=== PATIENT | female | born 1990 | race American Indian/Alaskan Native ===

== ENCOUNTER 2017-03-23 14:40 | Emergency (ER) | payer SELFPAY ==
[2017-03-23 14:40] VITALS: BMI 26.6
[2017-03-23 14:45] VITALS: BP 135/85; PULSE 89; RESP 18; TEMP 98.1; O2SAT 98
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
== END 2017-03-23 15:08 | disposition home or self-care (01) ==
LOC: MERGE 14:40 → C.ER 14:40
DX: S00.81XA Abrasion of other part of head, initial encounter (principal); Y09 Assault by unspecified means; F10.10 Alcohol abuse, uncomplicated; Y90.9 Presence of alcohol in blood, level not specified; Z76.5 Malingerer [conscious simulation]

== ENCOUNTER 2017-03-23 15:19 | Emergency (ER) | payer SELFPAY ==
[2017-03-23 15:19] VITALS: BMI 26.6
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
[2017-03-23 15:45] VITALS: BP 141/81; PULSE 96; RESP 18; TEMP 98.3; O2SAT 100
== END 2017-03-23 15:50 | disposition left against medical advice (07) ==
LOC: MERGE 15:19 → C.ER 15:19
DX: S00.81XD Abrasion of other part of head, subsequent encounter (principal); Y04.0XXD Assault by unarmed brawl or fight, subsequent encounter

== ENCOUNTER 2017-03-23 16:21 | Emergency (ER) | payer SELFPAY ==
[2017-03-23 16:22] VITALS: BMI 26.6
[2017-03-23 16:31] VITALS: O2SAT 98
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
[2017-03-23 17:42] VITALS: BP 140/70; PULSE 90; RESP 20; TEMP 98
== END 2017-03-23 17:42 | disposition home or self-care (01) ==
LOC: C.ER 16:21 → MERGE 16:21 → C.ER 17:42
DX: S00.511D Abrasion of lip, subsequent encounter (principal); S00.03XD Contusion of scalp, subsequent encounter; Y04.0XXD Assault by unarmed brawl or fight, subsequent encounter

== ENCOUNTER 2017-04-05 09:24 | Emergency (ER) | payer MEDICAID, OTHER ==
[2017-04-05 09:24] VITALS: BMI 26.6
[2017-04-05 09:37] VITALS: RESP 18
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
[2017-04-05] MEDS ORDERED: Bacitracin 500 Units/gm Oint Foilpak UD ONE (11:01)
[2017-04-05] MEDS ORDERED: Lidocaine 1% Inj (20ml) ONE (11:02)
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
[2017-04-05 13:56] VITALS: TEMP 98.2
[2017-04-05] MEDS ORDERED: cefTRIAXone (Rocephin) 250 mg Inj IM STA (16:40)
[2017-04-05] MEDS ORDERED: Emtricitabine-Tenofovir 200 mg-300 mg Tab PO STA ×2 (16:40)
[2017-04-05 17:30] LABS: RBC URINE 12 /hpf (0-3); TRANSITIONAL EPITHIAL < 1 /hpf (0-3); URINE BACTERIA RARE (<OCC); URINE BILIRUBIN NEGATIVE (NEGATIVE); URINE BLOOD 2+ (NEGATIVE); URINE COLOR Yellow (YELLOW); URINE GLUCOSE (UA) NORMAL (Normal); URINE KETONE NEGATIVE (NEGATIVE); URINE PROTEIN NEGATIVE (NEGATIVE); URINE UROBILINOGEN NORMAL mg/dL (0.2-1.0); WBC URINE 4 /hpf (0-5)
[2017-04-05 17:31] LABS: URINE LEUKOCYTE ESTERASE TRACE Leu/uL (Negative)
[2017-04-05 18:28] VITALS: BP 126/77; PULSE 94; O2SAT 100
== END 2017-04-05 18:27 | disposition home or self-care (01) ==
LOC: C.ER 09:24
DX: T76.21XA Adult sexual abuse, suspected, initial encounter (principal); F17.210 Nicotine dependence, cigarettes, uncomplicated; Z59.0 Homelessness
CPT/HCPCS: 11730; 81001; 84703; 86703; 96372; 99285; J0696

== ENCOUNTER 2017-05-14 08:37 | Emergency (ER) | payer MEDICAID, OTHER ==
[2017-05-14 09:07] VITALS: BMI 32.1
[2017-05-14 09:09] VITALS: TEMP 98.9
[2017-05-14] MEDS ORDERED: Lidocaine 1%/Epinephrine 1:100000 30 ml vial IJ ONE ×2 (11:15→11:30)
[2017-05-14] MEDS ORDERED: Lidocaine 1% Inj (20ml) ONE (11:24)
[2017-05-14] MEDS ORDERED: Bacitracin 500 Units/gm Oint Foilpak UD ONE (12:03)
--- NOTE | 2017-05-14 12:11 | C.PDOC ---
History Of Present Illness Pt c/o right great toe ingrown toenail. Time Seen by Provider: 05/14/17 09:30 Chief Complaint (Nursing): Lower Extremity Problem/Injury History Per: Patient Onset/Duration Of Symptoms: Days (about 2 weeks) Current Symptoms Are (Timing): Worse Severity: Moderate Additional History Per: Prior Records Past Medical History Reviewed: Historical Data, Nursing Documentation, Vital Signs Vital Signs: Last Vital Signs Temp 98.9 F 05/14/17 09:07 Pulse 85 05/14/17 09:07 Resp 20 05/14/17 09:07 BP 109/72 05/14/17 09:07 Pulse Ox 99 05/14/17 09:07 - Medical History PMH: Anxiety - [facility] Procedures INJECT/INFUSE NEC (04/07/13) MEDICATION MANAGEMENT (10/28/15) Family History: States: Unknown Family Hx - Social History Hx Tobacco Use: No Hx Alcohol Use: Yes Hx Substance Use: No - Immunization History Hx Tetanus Toxoid Vaccination: Yes Hx Influenza Vaccination: Yes Hx Pneumococcal Vaccination: No Review Of Systems Except As Marked, All Systems Reviewed And Found Negative. Constitutional: Negative for: Fever, Weakness Cardiovascular: Negative for: Chest Pain Respiratory: Negative for: Shortness of Breath Gastrointestinal: Negative for: Vomiting, Abdominal Pain Musculoskeletal: Positive for: Foot Pain (right great toe). Negative for: Neck Pain, Leg Pain Neurological: Negative for: Weakness, Numbness Physical Exam - Physical Exam Appears: Non-toxic, No Acute Distress Skin: Normal Color, Warm, Dry Head: Atraumatic, Normacephalic Eye(s): bilateral: Normal Inspection, PERRL, EOMI Neck: Normal ROM, Supple Extremity: Normal ROM, No Pedal Edema, No Calf Tenderness, Other (Right great toe ingrown toenail.) Pulses: Right Dorsalis Pedis: Normal Neurological/Psych: Oriented x3, Normal Motor, Normal Sensation ED Course And Treatment O2 Sat by Pulse Oximetry: 99 Pulse Ox Interpretation: Normal Progress Note: Ingrown toenail was treated by Podiatry in the ED. Reassessment Condition: Improved Disposition Counseled Patient/Family Regarding: Diagnosis, Need For Followup, Rx Given - Disposition Referrals: [facility] at [facility] [Outside] Disposition: HOME/ ROUTINE Disposition Time: 12:12 Condition: IMPROVED Additional Instructions: Follow up in Podiatry clinic. Return to the ER if you develop fever, pus drainage, worsening of symptoms or if you have any other concerns. Prescriptions: Cephalexin [Keflex] 500 mg PO QID #40 capsule Instructions: Ingrown Nail (ED) - Clinical Impression Clinical Impression: Ingrown right greater toenail
[2017-05-14 12:18] VITALS: BP 127/80; PULSE 72; RESP 16; O2SAT 100
--- NOTE | 2017-05-14 12:40 | CP.PCM.CON ---
History of Present Illness - History of Present Illness History of Present Illness: Podiatry consult note for Dr. Corado 26 year old female with no significant PMH was seen in the ED for right ingrown toenail pain. She states that a month ago she had an infected left great toe nail excised in [facility] ER by podiatry service and completed abx regimen, she was seen about 2 weeks ago fro new similar symptoms to her right great toe and was given antibiotics which she lost and never completed the regimen. Pt reports she is un-homed and currently in a penitentiary and states that she showers in a community shower. She admits to yellow non-milky discharge coming from the right great toe, both borders. Pt reports pain is a "7/10" to the affected area denies, and states that she has been having trouble walking due to the pain. She is utilizing previously dispensed post-op shoe to walk. Denies any recent n /v/f/c/sob/cp. Past Patient History - Infectious Disease Hx of Infectious Diseases: None - Tetanus Immunizations Tetanus Immunization: Up to Date, Unknown - Past Medical History & Family History Past Medical History?: No - Past Social History Smoking Status: Light Smoker < 10 Cigarettes Daily - CARDIAC Hx Hypertension: No - PULMONARY Hx Tuberculosis: No - NEUROLOGICAL Hx Seizures: No - HEENT Hx HEENT Problems: No - RENAL Hx Chronic Kidney Disease: No - HEMATOLOGICAL/ONCOLOGICAL Hx Human Immunodeficiency Virus (HIV): No - INTEGUMENTARY Hx Dermatological Problems: No - MUSCULOSKELETAL/RHEUMATOLOGICAL Hx Musculoskeletal Disorders: No - GASTROINTESTINAL Hx Gastrointestinal Disorders: No - GENITOURINARY/GYNECOLOGICAL Hx Sexually Transmitted Disorders: No - PSYCHIATRIC Hx Anxiety: Yes Hx Substance Use: No - SURGICAL HISTORY Hx Surgeries: No Hx Orthopedic Surgery: Yes (lt foot) Other/Comment: RT eye surgery - ANESTHESIA Hx Anesthesia: Yes Hx Anesthesia Reactions: No Hx Malignant Hyperthermia: No Meds Home Medications: Home Medication List Medication Instructions Recorded Confirmed Type Cephalexin [Keflex] 500 mg PO QID #40 capsule 05/14/17 Rx Allergies/Adverse Reactions: Allergies Allergy/AdvReac Type Severity Reaction Status Date / Time pollen extracts Allergy Mild Verified 05/14/17 09:06 Physical Exam - Constitutional Appears: Well, Non-toxic, No Acute Distress - Extremities Exam Additional comments: Lower extremity focused exam: Vasc: DP and PT pulses palpable 2/4. Skin temperature warm to warm from proximal to distal. CFT < 3 seconds to all digits. Neuro: Gross sensation intact. Ortho: Tenderness on palpation to medial and lateral nail borders and distal tuft of right hallux. No tenderness upon palpation to left hallux nail-border. Derm: Lateral border of the right hallux was noted to be macerated, hypertrophied, with dried sanginous exudate. No active drainage noted, no purulence, mild malodor noted. Erythema and mild hyperpigmentation noted to the medial aspect of the nail border extending plantarly. Lef tlateral nail plate noted to be absent, absent acute signs of infection, no active drainage noted, no erythema, mild mal-odor noted. - Neurological Exam Neurological exam: Alert, Oriented x3 - Psychiatric Exam Psychiatric exam: Normal Affect, Normal Mood Results - Vital Signs Recent Vital Signs: Last Vital Signs Temp 98.9 F 05/14/17 09:07 Pulse 72 05/14/17 12:17 Resp 16 05/14/17 12:17 BP 127/80 05/14/17 12:17 Pulse Ox 100 05/14/17 12:17 Assessment & Plan - Assessment and Plan (Free Text) Assessment: 26 year old female with right hallux paronychia and ingrown bilateral nail borders Plan: Patient examined and evaluated. Chart and vitals reviewed. Discussed with attending Dr. Corado, who endoresed the following plan. Right hallux nail anesthetized with 10 mL's of 1% lidocaine plain in a local block fashion. The hallux was cleansed with betadine and nail bed was explored. The lateral and medial hallux nail borders was noted to be ingrown, utilizing a freer elevator, the respective borders was freed from the nail bed, and using sharp dissection was cut back to the nail root and removed. Explored for nail spicules which were absent. The site was irrigated with copious amounts of betadine-sterile saline mixture. The site was dressed with bacitracin, 4x4, cling, and MELO. Patient to keep dressing c/d/i for 48-72 hours, after which patient to soak foot in epsom salt for 10-15 mintues daily, dry well, and apply bacitrain and bandaid educated patient in importance of keeping site clean. Pt to return to ED is acute signs of infection present. Prescribed Keflex 500mg BID for 7 days. Patient to follow up in podiatry clinic in 9 days. - Date & Time Date: 05/14/17 Time: 11:30
== END 2017-05-14 12:18 | disposition home or self-care (01) ==
LOC: C.ER 08:37
DX: L60.0 Ingrowing nail (principal); F17.210 Nicotine dependence, cigarettes, uncomplicated

== ENCOUNTER 2017-07-01 19:01 | Emergency (ER) | payer MEDICAID, OTHER ==
[2017-07-01 19:04] VITALS: BMI 30.7
--- NOTE | 2017-07-01 19:50 | C.PDOC ---
History Of Present Illness 26 year old female, , LMP last month, presents to the ER with a complaint of abdominal pain and diarrhea. Patient was evaluated at another institution 3 days ago, told she was and treated for STD. Patient also reports she feels depressed and is still using crack. Denies other complaints at this time. Time Seen by Provider: 07/01/17 19:42 Chief Complaint (Nursing): Abdominal Pain History Per: Patient History/Exam Limitations: no limitations Onset/Duration Of Symptoms: Days Radiation Of Pain To:: None Quality Of Discomfort: Unable To Describe Associated Symptoms: Diarrhea. denies: Fever, Chills Exacerbating Factors: None Alleviating Factors: None Recent travel outside of the [place]: No Abnormal Vaginal Bleeding: No Past Medical History Reviewed: Historical Data, Nursing Documentation, Vital Signs Vital Signs: Last Vital Signs Temp 97.9 F 07/01/17 22:42 Pulse 82 07/01/17 22:42 Resp 22 07/01/17 22:42 BP 137/84 07/01/17 22:42 Pulse Ox 100 07/01/17 22:53 - Medical History PMH: Anxiety - [facility] Procedures INJECT/INFUSE NEC (04/07/13) MEDICATION MANAGEMENT (10/28/15) Family History: States: Unknown Family Hx - Social History Hx Tobacco Use: No Hx Alcohol Use: Yes Hx Substance Use: Yes (CRACK) - Immunization History Hx Tetanus Toxoid Vaccination: Yes Hx Influenza Vaccination: Yes Hx Pneumococcal Vaccination: No Review Of Systems Constitutional: Negative for: Fever, Chills Cardiovascular: Negative for: Chest Pain, Palpitations Respiratory: Negative for: Shortness of Breath Gastrointestinal: Positive for: Abdominal Pain, Diarrhea Psych: Positive for: Depression Physical Exam - Physical Exam Appears: Non-toxic, No Acute Distress Skin: Normal Color, Warm, Dry Head: Atraumatic, Normacephalic Eye(s): bilateral: Normal Inspection Oral Mucosa: Moist Chest: Symmetrical, No Tenderness Cardiovascular: Rhythm Regular Respiratory: Normal Breath Sounds, No Rales, No Rhonchi, No Wheezing Gastrointestinal/Abdominal: Soft, No Tenderness Back: No CVA Tenderness Neurological/Psych: Oriented x3, Normal Speech ED Course And Treatment - Laboratory Results Result Diagrams: 07/01/17 20:11 07/01/17 20:11 O2 Sat by Pulse Oximetry: 100 (Room air) Pulse Ox Interpretation: Normal Medical Decision Making Medical Decision Making: ro threatned miscarriage- us 2 days ago. beta 100. repeat labs penidng also c/o of drug abuse and requests detox and admission for depression Plan: * Blood work * Urinalysis * Transvaginal US * IV fluids * Crisis eval seen by dulce vang. does not meet admission criteria. beta increased to 500. us shows susepcted early iup. pt refuses pelvic s/p std tx at [facility] 2 days ago. taking po Disposition - Disposition Referrals: [facility] [Outside] [facility] [Outside] Disposition: HOME/ ROUTINE Disposition Time: 22:40 Condition: STABLE Additional Instructions: please follo wup with your doctor. return to er with worsening symptoms or concerns. you may need addiitonal blood work and ultrasound in the next 48 hours. follow up with obgyn Prescriptions: Nitrofurantoin Macrocrystals [Macrobid] 100 mg PO BID #14 cap Instructions: Depression, Threatened Miscarriage, Drug Abuse and Drug Addiction (DC) Forms: [employer] (Italian) - Clinical Impression Clinical Impression: Threatened , Substance abuse - Scribe Statement The provider has reviewed the documentation as recorded by the Scribe Andry Lance All medical record entries made by the Scribe were at my direction and personally dictated by me. I have reviewed the chart and agree that the record accurately reflects my personal performance of the history, physical exam, medical decision making, and the department course for this patient. I have also personally directed, reviewed, and agree with the discharge instructions and disposition.
[2017-07-01] MEDS ORDERED: Sodium Chloride 0.9% 1,000 ML IV ONE (19:53)
[2017-07-01 20:25] LABS: BASO # 0.1 K/uL (0.0-0.2); BASO % 0.5 % (0.0-2.0); EOS # 0.2 K/uL (0.0-0.7); EOS % 1.8 % (0.0-4.0); HEMOGLOBIN 13.3 g/dL (11.0-16.0); MEAN CELL VOLUME 89.6 fL (81.0-99.0); MEAN CORPUSCULAR HEMOGLOBIN 29.9 pg (27.0-31.0); MEAN CORPUSCULAR HGB CONC 33.4 g/dL (33.0-37.0); MEAN PLATELET VOLUME 9.3 fL (7.2-11.7); MONO # 0.6 K/uL (0.0-0.8); MONO % 4.7 % (0.0-10.0); NEUT # 8.7 K/uL (1.8-7.0); NRBC % 0.1 % (0.0-2.0); RBC 4.47 Mil/uL (3.80-5.20); RED CELL DISTRIBUTION WIDTH 13.9 % (11.5-14.5); WHITE BLOOD COUNT 12.5 K/uL (4.8-10.8)
[2017-07-01 20:33] LABS: INR 1.2; PROTHROMBIN TIME 13.1 SECONDS (9.7-12.2)
[2017-07-01 20:38] LABS: ALB/GLOB RATIO 1.2 (1.0-2.1); ALBUMIN 4.2 g/dL (3.5-5.0); ALT/SGPT 44 U/L (9-52); AST/SGOT 27 U/L (14-36); BLOOD UREA NITROGEN 14 mg/dL (7-17); CALCIUM 9.2 mg/dl (8.6-10.4); GFR AFRICAN-AMERICAN > 60; GFR NON-AFRICAN AMERICAN > 60
[2017-07-01 20:44] LABS: ACETAMINOPHEN < 10.0 ug/mL (10.0-30.0); SALICYLATE < 1.0 mg/dL 1
[2017-07-01] MEDS ORDERED: Sodium Chloride 0.9% 1,000 ML ONE (21:09)
[2017-07-01 21:19] LABS: HCG,QUALITATIVE URINE POSITIVE (NEGATIVE)
[2017-07-01 21:21] LABS: SQUAMOUS EPITHIAL 24 /hpf (0-5); URINE BACTERIA RARE (<OCC); URINE BILIRUBIN NEGATIVE (NEGATIVE); URINE BLOOD NEGATIVE (NEGATIVE); URINE CLARITY Hazy (Clear); URINE COLOR Yellow (YELLOW); URINE GLUCOSE (UA) NORMAL (Normal); URINE LEUKOCYTE ESTERASE 3+ Leu/uL (Negative); URINE PROTEIN NEGATIVE (NEGATIVE)
[2017-07-01 21:33] VITALS: RESP 22
[2017-07-01 21:34] LABS: BARBITURATES, UR NEGATIVE (NEGATIVE); BENZODIAZEPINES, UR NEGATIVE (NEGATIVE); OPIATES, UR NEGATIVE (NEGATIVE)
--- NOTE | 2017-07-01 21:45 | US ---
EXAM: US First Trimester, Transabdominal US , Transvaginal EXAM DATE/TIME: 07/01/2017 7:53 PM CLINICAL HISTORY: 26 years old, female; Pain; complicated by abdominal or pelvic pain; Generalized abdominal pain; First trimester; Gestational age or lmp: Unknown; Additional info: Abd pain and ; beta-hCG 590.96 TECHNIQUE: Real-time transabdominal and transvaginal obstetrical ultrasound of the maternal pelvis and a first trimester with image documentation. Transvaginal imaging was used for better evaluation of the fetus and adnexa. COMPARISON: There are no prior studies for comparison. FINDINGS: Gestation:There is a small cystic structure in the endometrial canal. Mean diameter is approximately 2.5 mm. Uterus : Uterus measures approximately 9 x 5 x 6 cm. There is a nabothian cyst in the cervix. Cervix measures approximately 3.27 m in length. Endometrium measures approximately 12.6 mm in width. Ovaries: Right ovary measures approximately 3 x 2.6 x 2.7 cm. there is a corpus luteum in the right ovary. Left ovary measures approximately 3.4 x 2.1 x 2.5 cm.There is flow in both ovaries on Doppler imaging. Free fluid: There is a small amount of free fluid in the cul-de-sac. Bladder: Bladder is almost completely empty IMPRESSION: Cystic structure in the endometrium suggestive of a very early intrauterine gestation; right corpus luteum; small amount of free fluid in the cul-de-sac, physiologic versus cyst rupture Correlation with serial beta-hCG levels and followup sonography advised
[2017-07-01 21:56] LABS: PHENCYCLIDINE, UR POSITIVE (NEGATIVE)
[2017-07-01 22:19] VITALS: O2SAT 100
[2017-07-01 22:43] VITALS: BP 137/84; PULSE 82; TEMP 97.9
== END 2017-07-01 22:45 | disposition home or self-care (01) ==
LOC: C.ER 19:01
DX: O20.0 Threatened abortion (principal); F19.10 Other psychoactive substance abuse, uncomplicated; Z3A.00 Weeks of gestation of pregnancy not specified
CPT/HCPCS: 76805; 76817; 80053; 80320; 80324; 80329; 80345; 80346; 80349; 80353; 80358; 80361; 81001; 83992; 84702; 84703; 85025; 85610; 85730; 86850; 86900; 96360; 99285; J7040

== ENCOUNTER 2017-07-21 21:34 | Emergency (ER) | payer MEDICAID, OTHER ==
[2017-07-21 21:34] VITALS: BMI 30.7
[2017-07-21 23:12] LABS: BASO # 0.1 K/uL (0.0-0.2); BASO % 0.5 % (0.0-2.0); EOS # 0.1 K/uL (0.0-0.7); HEMOGLOBIN 12.7 g/dL (11.0-16.0); LYMPH # 2.3 K/uL (1.0-4.3); LYMPH % 19.8 % (20.0-40.0); MEAN CELL VOLUME 89.4 fL (81.0-99.0); MEAN CORPUSCULAR HEMOGLOBIN 30.6 pg (27.0-31.0); MEAN CORPUSCULAR HGB CONC 34.2 g/dL (33.0-37.0); MEAN PLATELET VOLUME 9.4 fL (7.2-11.7); MONO # 0.8 K/uL (0.0-0.8); MONO % 6.6 % (0.0-10.0); NEUT # 8.2 K/uL (1.8-7.0); NEUT % 72.1 % (50.0-75.0); NRBC % 0.1 % (0.0-2.0); RBC 4.16 Mil/uL (3.80-5.20); RED CELL DISTRIBUTION WIDTH 14.2 % (11.5-14.5); WHITE BLOOD COUNT 11.4 K/uL (4.8-10.8)
[2017-07-21 23:27] LABS: ACETAMINOPHEN < 10.0 ug/mL (10.0-30.0); SALICYLATE < 1.0 mg/dL 1
[2017-07-21 23:33] LABS: ALB/GLOB RATIO 1.1 (1.0-2.1); ALBUMIN 4.4 g/dL (3.5-5.0); ALT/SGPT 28 U/L (9-52); AST/SGOT 41 U/L (14-36); BLOOD UREA NITROGEN 7 mg/dL (7-17); CALCIUM 9.4 mg/dl (8.6-10.4); GFR AFRICAN-AMERICAN > 60; GFR NON-AFRICAN AMERICAN > 60
[2017-07-21] MEDS ORDERED: Potassium Chloride 20 mEq ER Tab PO STA (23:38)
[2017-07-21] MEDS ORDERED: Potassium Chloride 20 mEq ER Tab PO ONE (23:55)
--- NOTE | 2017-07-22 00:32 | C.PDOC ---
Time Seen by Provider: 07/21/17 22:09 Chief Complaint (Nursing): Psychiatric Evaluation History Per: Patient History/Exam Limitations: clinical condition Onset/Duration Of Symptoms: Unknown Current Symptoms Are (Timing): Still Present Severity: Moderate Associated Symptoms: Depression, Paranoia Additional History Per: Prior Records Past Medical History Reviewed: Historical Data, Nursing Documentation, Vital Signs Vital Signs: Last Vital Signs Temp 98.2 F 07/21/17 21:40 Pulse 85 07/21/17 21:40 Resp 18 07/21/17 21:40 BP 125/84 07/21/17 21:40 Pulse Ox 97 07/22/17 00:34 - Medical History PMH: Anxiety Other PMH: Pt is - [facility] Procedures INJECT/INFUSE NEC (04/07/13) MEDICATION MANAGEMENT (10/28/15) Family History: States: Unknown Family Hx - Social History Hx Tobacco Use: No Hx Alcohol Use: Yes Hx Substance Use: Yes - Immunization History Hx Tetanus Toxoid Vaccination: Yes Hx Influenza Vaccination: Yes Hx Pneumococcal Vaccination: No Review Of Systems Review Of Systems: ROS cannot be obtained secondary to pt's inabilty to answer questions. Physical Exam - Physical Exam Appears: Non-toxic, Unkempt, Other (Inattentive. Uncooperative. Labile affect. ) Skin: Normal Color, Warm, Dry Head: Atraumatic Eye(s): bilateral: PERRL Neck: Normal ROM, Supple Cardiovascular: Rhythm Regular Respiratory: Normal Breath Sounds, No Accessory Muscle Use Gastrointestinal/Abdominal: Soft Extremity: Normal ROM Neurological/Psych: Normal Motor, Inappropriate Response To Command Gait: Steady ED Course And Treatment - Laboratory Results Result Diagrams: 07/21/17 23:09 07/21/17 23:09 Interpretation Of Abnormal: Beta hcg increasing. Mild hypokalemia. O2 Sat by Pulse Oximetry: 97 Pulse Ox Interpretation: Normal Disposition - Disposition Disposition Time: 01:00 Condition: STABLE - Clinical Impression Clinical Impression: Evaluation by psychiatric service required, Physician Patient Turnover Patient Signed Over To: Hugh Henao Handoff Comments: to f/up urine and pelvic US for medical clearance to psych.
--- NOTE | 2017-07-22 02:12 | US ---
EXAM: US Transabd First Trimester First Gest EXAM DATE/TIME: 07/21/2017 11:51 PM CLINICAL HISTORY: 26 years old, female; Signs and symptoms; Lmp or gestational age (in weeks): Unknown lmp; Other: . Medical clearance for psych; ; Additional info: . Medical clearance for psych. TECHNIQUE: Real-time ultrasound of the transabd first trimester first gest with image documentation. COMPARISON: US - PREG 1ST TRIMESTER/OB TV 2017-07-01 20:37 FINDINGS: The uterus measures approximately 12 x 6 x 7 cm and the cervix measures 3.6 cm. There is an intrauterine gestational sac containing a yolk sac and pole. Measurements correspond to a gestational age of 8 weeks 0 days.. A heart rate of 140 - 144 beats per minute was obtained. The maternal right ovary is normal. Vascular waveforms are demonstrated to the maternal right ovary. IMPRESSION: Single live IUP.
[2017-07-22 03:02] LABS: HCG,QUALITATIVE URINE POSITIVE (NEGATIVE)
[2017-07-22 03:07] LABS: SQUAMOUS EPITHIAL 32 /hpf (0-5); URINE BACTERIA RARE (<OCC); URINE BILIRUBIN NEGATIVE (NEGATIVE); URINE BLOOD NEGATIVE (NEGATIVE); URINE CLARITY Hazy (Clear); URINE COLOR Yellow (YELLOW); URINE GLUCOSE (UA) NORMAL (Normal); URINE LEUKOCYTE ESTERASE 2+ Leu/uL (Negative); URINE PROTEIN NEGATIVE (NEGATIVE)
[2017-07-22 03:19] LABS: BARBITURATES, UR NEGATIVE (NEGATIVE); BENZODIAZEPINES, UR NEGATIVE (NEGATIVE); OPIATES, UR NEGATIVE (NEGATIVE); PHENCYCLIDINE, UR POSITIVE (NEGATIVE)
--- NOTE | 2017-07-22 12:06 | PCM.PSYCH ---
Initial Psychiatric Evaluation - Initial Psychiatric Evaluation Type of Admission: Involuntary Legal Status: Other Chief Complaint (in patient's own words): "I wanna be a tile designer" History of Present Illness and Precipitating Events: Patient is seen, chart reviewed and case discussed. Patient is a 26-year-old -[place] female, single, , no child, homeless and unemployed. The patient is a very poor historian and is told disordered. She doesn't give straight answers and has thought blocking and gets distracted even during a short talk. She admits to feeling paranoid and having high expectations about herself, which sound like delusional thoughts. However, again, she cannot elaborate. She denied drug and alcohol use but her urine was positive for drugs. She is very disorganized and is unable to take care of herself. Past psych history: She admitted that she was in hospital in the past but would not elaborate. Family psych history: Unknown Medical history: Unknown Past Psychiatric History - Past Psychiatric History Previous Treatment History: Inpatient Pertinent Medical Hx (Current Medical&Sleep Prob, Allergies): Allergies Allergy/AdvReac Type Severity Reaction Status Date / Time pollen extracts Allergy Mild ITCHING Unverified 07/22/17 10:22 Nitrofurantoin Macrocrystals [Macrobid] 100 mg PO BID #14 cap 07/01/17 Review of Systems - Neurological Neurological: UNREMARKABLE - Psychiatric Psychiatric: Abnormal Sleep Pattern, Anxiety, Difficulty Concentrating, Hallucinations (likely), Irritability, Paranoia. absent: Suicidal Ideation Mental Status Examination - Personal Presentation Personal Presentation: Looks older than stated age (odd, unkempt) - Affect Affect: Blunted (odd and labile) - Motor Activity Motor Activity: Calm - Reliability in Providing Information Reliability in Providing Information: Poor, due to alteration in thoughts - Speech Speech: Disorganized - Formal Thought Process Formal Thought Process: Hallucinations (likely), Paranoia, Loosening of associations, Circumstantial, Perservation, Other (thought blocking) - Cognitive Functions Orientation: Place Sensorium: Alert Attention/Concentration: Easily distracted Abstract Thinking: Ryan Estimate of Intelligence: Below average Judgement: Imparied, as evidence by: Poor judgement Memory: Recent impaired, as evidence by: Inability to recall events of the day, Remote impaired as evidenced by: Inability to recall sig life events - Risk Risk: Diminished functioning - Strength & Assets Inventory Strength & Assets Inventory: Cooperative - Limitations Limitations: Living alone DSM 5 DX - DSM 5 DSM 5 Diagnosis: Schizophrenia, acute exacerbation PCP use d/o Cocaine use d/o Cannabis use d/o r/o psychosis unspecified - Recommended/Plan of Treatment Treatment Recommendations and Plan of Treatment: Screened and accepted for invol stay DYFS prn meds Refusing meds otherwise Support and psychoed 31 min
[2017-07-22] MEDS ORDERED: DiphenhydrAMINE 12.5 mg/5 ml LIQ UD (5 ml) PO PRN (12:07)
[2017-07-22] MEDS ORDERED: Potassium Chloride 20 mEq/15 ml LIQ UD PO STA ×2 (15:29→16:03)
[2017-07-22] MEDS ORDERED: Potassium Chloride 20 mEq/15 ml LIQ UD ONE ×2 (15:59→16:06)
[2017-07-22] MEDS ORDERED: DiphenhydrAMINE 50 mg/ml Inj IM STA (20:21)
[2017-07-22] MEDS ORDERED: DiphenhydrAMINE 50 mg/ml Inj ONE (20:29)
[2017-07-23 10:28] VITALS: O2SAT 99
[2017-07-23 11:12] VITALS: BP 125/84; PULSE 80; RESP 19; TEMP 98.7
--- NOTE | 2017-07-23 20:46 | CARD ---
APPROVED REPORT EKG Measurement Heart [id number] <Conclusion> Normal sinus rhythm Low voltage QRS Borderline ECG
== END 2017-07-23 11:23 | disposition short-term general hospital (02) ==
LOC: C.ER 21:34
DX: F23 Brief psychotic disorder (principal); F16.90 Hallucinogen use, unspecified, uncomplicated; F14.90 Cocaine use, unspecified, uncomplicated; F12.90 Cannabis use, unspecified, uncomplicated; O26.891 Other specified pregnancy related conditions, first trimester; Z3A.08 8 weeks gestation of pregnancy
CPT/HCPCS: 76801; 80053; 80320; 80324; 80329; 80345; 80346; 80349; 80353; 80358; 80361; 81001; 83992; 84702; 84703; 85025; 93005; 96372; 99285; J1200; J1630

== ENCOUNTER 2017-10-08 10:36 | Emergency (ER) | payer OTHER ==
[2017-10-08 10:38] VITALS: BMI 30.7
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
[2017-10-08 12:23] LABS: BASO % 0.4 % (0.0-2.0); EOS % 0.1 % (0.0-4.0); HEMOGLOBIN 11.5 g/dL (11.0-16.0); LYMPH # 1.2 K/uL (1.0-4.3); LYMPH % 10.9 % (20.0-40.0); MEAN CELL VOLUME 89.8 fL (81.0-99.0); MEAN CORPUSCULAR HGB CONC 34.5 g/dL (33.0-37.0); MEAN PLATELET VOLUME 9.1 fL (7.2-11.7); MONO # 0.5 K/uL (0.0-0.8); NEUT # 9.1 K/uL (1.8-7.0); NEUT % 83.6 % (50.0-75.0); RBC 3.72 Mil/uL (3.80-5.20); RED CELL DISTRIBUTION WIDTH 13.1 % (11.5-14.5); WHITE BLOOD COUNT 10.9 K/uL (4.8-10.8)
[2017-10-08 12:34] LABS: ALB/GLOB RATIO 1.4 (1.0-2.1); ALBUMIN 4.4 g/dL (3.5-5.0); ALT/SGPT 33 U/L (9-52); AST/SGOT 23 U/L (14-36); BLOOD UREA NITROGEN 5 mg/dL (7-17); CALCIUM 8.9 mg/dl (8.6-10.4); GFR AFRICAN-AMERICAN > 60; GFR NON-AFRICAN AMERICAN > 60
[2017-10-08 12:39] LABS: SQUAMOUS EPITHIAL 10 /hpf (0-5); URINE BACTERIA RARE (<OCC); URINE BILIRUBIN NEGATIVE (NEGATIVE); URINE BLOOD NEGATIVE (NEGATIVE); URINE CLARITY Hazy (Clear); URINE COLOR Yellow (YELLOW); URINE GLUCOSE (UA) NORMAL (Normal); URINE LEUKOCYTE ESTERASE 1+ Leu/uL (Negative); URINE PROTEIN NEGATIVE (NEGATIVE); URINE UROBILINOGEN NORMAL mg/dL (0.2-1.0)
[2017-10-08 13:15] LABS: BARBITURATES, UR NEGATIVE (NEGATIVE); BENZODIAZEPINES, UR NEGATIVE (NEGATIVE); OPIATES, UR NEGATIVE (NEGATIVE); PHENCYCLIDINE, UR NEGATIVE (NEGATIVE)
[2017-10-08] MEDS ORDERED: Potassium Chloride 20 mEq ER Tab PO STA ×2 (16:43→20:38)
[2017-10-08] MEDS ORDERED: Potassium Chloride 20 mEq ER Tab PO ONE (16:48)
[2017-10-09] MEDS ORDERED: Potassium Chloride 20 mEq ER Tab PO SCH (10:00)
--- NOTE | 2017-10-09 12:30 | US ---
PROCEDURE: OB Pelvic Ultrasound HISTORY: LMP: Unknown COMPARISON: None available. FINDINGS: UTERUS: Gestational sac: Single intrauterine fetus in cephalic presentation. Heart rate: 144 bpm. BPD: 4.47 cm corresponding to 19 weeks and 4 days of gestational age. HC: 17.1 cm corresponding to 19 weeks and 5 days of gestational age. AC: 14.36 cm corresponding to 19 weeks and 5 days of gestational age. FL: 2.97 cm corresponding to 19 weeks and 1 day of gestational age. age (Ultrasound estimated): 19 weeks and 1 day Gwendolyn-gestational hemorrhage: None. Date of delivery (Ultrasound estimated) : 03/03/2018 Placenta is anterior. Amniotic fluid is adequate. CERVIX: Measures 3.7 cm. Long and closed. No cervical abnormality seen. RIGHT OVARY: Not visualized. LEFT OVARY: Not visualized. FREE FLUID: None. OTHER FINDINGS: None. IMPRESSION: Single live intrauterine fetus in cephalic presentation with mean gestational age of 19 weeks and 1 day. Estimated date of delivery by ultrasound is 03/03/2018. Please note this is a limited OB ultrasound performed on an emergency basis. Follow-up anatomic survey is recommended. A preliminary report was provided by [facility].
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
[2017-10-10] MEDS: Prenatal Multivit/Folic Acid/Iron Tab PO SCH (11:54)
[2017-10-11] MEDS: Prenatal Multivit/Folic Acid/Iron Tab PO SCH (11:00)
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
[2017-10-12 07:44] VITALS: RESP 18; TEMP 98.2
[2017-10-12] MEDS: Prenatal Multivit/Folic Acid/Iron Tab PO SCH (10:20)
[2017-10-12 10:23] VITALS: BP 121/80; PULSE 80; O2SAT 100
== END 2017-10-12 10:25 | disposition short-term general hospital (02) ==
LOC: C.ER 10:36
DX: F20.9 Schizophrenia, unspecified (principal); O26.92 Pregnancy related conditions, unspecified, second trimester; Z3A.19 19 weeks gestation of pregnancy; F41.9 Anxiety disorder, unspecified; F32.9 Major depressive disorder, single episode, unspecified

== ENCOUNTER 2017-10-26 08:42 | Emergency (ER) | payer MEDICAID, OTHER ==
[2017-10-26 08:42] VITALS: BMI 23.3
--- NOTE | 2017-10-26 09:30 | C.PDOC ---
History Of Present Illness Patient left ER without being seen. Time Seen by Provider: 10/26/17 08:43 Past Medical History - Medical History PMH: Anxiety, Depression, HIV Denies: Diabetes, Hepatitis, HTN, Chronic Kidney Disease, Seizures, Sexually Transmitted Disease - [facility] Procedures INJECT/INFUSE NEC (04/07/13) MEDICATION MANAGEMENT (10/28/15) Family History: States: Unknown Family Hx - Social History Hx Tobacco Use: No Hx Alcohol Use: Yes Hx Substance Use: Yes - Immunization History Hx Tetanus Toxoid Vaccination: Yes Hx Influenza Vaccination: Yes Hx Pneumococcal Vaccination: No Disposition - Disposition Disposition: LEFT W/O BEING SEEN - ER ONLY Disposition Time: 09:00 Condition: UNKNOWN - Clinical Impression Clinical Impression: Evaluation by medical service required
== END 2017-10-26 08:43 | disposition left against medical advice (07) ==
LOC: C.ER 08:42
DX: Z02.89 Encounter for other administrative examinations (principal)

== ENCOUNTER 2018-04-14 10:27 | Emergency (ER) | payer OTHER ==
[2018-04-14 10:28] VITALS: BMI 25.9
[2018-04-14 10:59] VITALS: RESP 18
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
[2018-04-14] MEDS ORDERED: cefTRIAXone (Rocephin) 250 mg Inj IM STA (12:49)
[2018-04-14 13:56] VITALS: BP 120/80; PULSE 87; TEMP 98
[2018-04-14] MEDS ORDERED: Emtricitabine-Tenofovir 200 mg-300 mg Tab PO ONE (14:00)
[2018-04-14 19:14] VITALS: O2SAT 100
== END 2018-04-14 14:30 | disposition home or self-care (01) ==
LOC: C.ER 10:27
DX: T74.21XA Adult sexual abuse, confirmed, initial encounter (principal)
CPT/HCPCS: 96372; 99285; J0696

== ENCOUNTER 2018-04-16 23:16 | Emergency (ER) | payer SELFPAY ==
[2018-04-16 23:17] VITALS: BMI 25.9
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
[2018-04-17 00:19] LABS: SQUAMOUS EPITHIAL < 1 /hpf (0-5); URINE BILIRUBIN NEGATIVE (NEGATIVE); URINE BLOOD NEGATIVE (NEGATIVE); URINE CLARITY Clear (Clear); URINE COLOR Straw (YELLOW); URINE GLUCOSE (UA) NORMAL (Normal); URINE LEUKOCYTE ESTERASE NEG Leu/uL (Negative); URINE PROTEIN NEGATIVE (NEGATIVE); URINE UROBILINOGEN NORMAL mg/dL (0.2-1.0)
[2018-04-17 00:33] LABS: HCG,QUALITATIVE URINE NEGATIVE (NEGATIVE)
[2018-04-17 00:34] LABS: BARBITURATES, UR NEGATIVE (NEGATIVE); BENZODIAZEPINES, UR NEGATIVE (NEGATIVE); OPIATES, UR NEGATIVE (NEGATIVE)
[2018-04-17 00:37] LABS: PHENCYCLIDINE, UR POSITIVE (NEGATIVE)
[2018-04-17 06:08] VITALS: O2SAT 99
[2018-04-17 06:12] VITALS: BP 111/71; PULSE 88; RESP 17; TEMP 98.3
== END 2018-04-17 06:12 | disposition home or self-care (01) ==
LOC: C.ER 23:16
DX: F12.10 Cannabis abuse, uncomplicated (principal); F14.10 Cocaine abuse, uncomplicated; F16.10 Hallucinogen abuse, uncomplicated
CPT/HCPCS: 81001; 82948; 84703; 99285; G0480

== ENCOUNTER 2018-05-31 22:05 | Emergency (ER) | payer SELFPAY ==
[2018-05-31 22:05] VITALS: BMI 25.9
[2018-05-31 22:22] VITALS: BP 129/76; PULSE 81; RESP 20; TEMP 98.6; O2SAT 100
--- NOTE | 2018-05-31 22:55 | C.PDOC ---
History Of Present Illness 27 year old female found sitting in hallway of [facility] apartment brought in for psych eval. Patient is agitated, fighting, refusing to undress or answer questions. She states she has emotional problems but is not specific as to what. She is awake, alert, orientedx3, ambulatory, not slurring speech, refuses to answer questions. Time Seen by Provider: 05/31/18 22:22 Chief Complaint (Nursing): Psychiatric Evaluation Past Medical History Vital Signs: Last Vital Signs Temp 98.6 F 05/31/18 22:14 Pulse 81 05/31/18 22:14 Resp 20 05/31/18 22:14 BP 129/76 05/31/18 22:14 Pulse Ox 100 05/31/18 22:14 - Medical History PMH: Anxiety, Depression, Schizophrenia Denies: HIV (PT DENIES), Chronic Kidney Disease, Seizures, Sexually Transmitted Disease (PT DENIES) - [facility] Procedures INJECT/INFUSE NEC (04/07/13) MEDICATION MANAGEMENT (10/28/15) Family History: States: Unknown Family Hx - Social History Hx Tobacco Use: No Hx Alcohol Use: Yes Hx Substance Use: Yes - Immunization History Hx Tetanus Toxoid Vaccination: Yes Hx Influenza Vaccination: No Hx Pneumococcal Vaccination: No Review Of Systems Review Of Systems: ROS cannot be obtained secondary to pt's inabilty to answer questions. Physical Exam - Physical Exam Appears: Well, Unkempt, Agitated Skin: Normal Color Head: Atraumatic Neurological/Psych: Oriented x3, Normal Speech, Normal Cognition, Normal Motor Gait: Steady ED Course And Treatment O2 Sat by Pulse Oximetry: 100 Disposition - Disposition Disposition: HOME/ ROUTINE Disposition Time: 22:45 Condition: STABLE Forms: [facility] (Turkish) - Clinical Impression Clinical Impression: Encounter for psychiatric assessment - Scribe Statement The provider has reviewed the documentation as recorded by the Scribe Andry Lance All medical record entries made by the Scribe were at my direction and personally dictated by me. I have reviewed the chart and agree that the record accurately reflects my personal performance of the history, physical exam, medical decision making, and the department course for this patient. I have also personally directed, reviewed, and agree with the discharge instructions and disposition.
== END 2018-05-31 22:40 | disposition home or self-care (01) ==
LOC: C.ER 22:05
DX: Z00.8 Encounter for other general examination (principal)

== ENCOUNTER 2018-06-09 14:06 | Emergency (ER) | payer OTHER ==
[2018-06-09 14:07] VITALS: BMI 25.9
[2018-06-09 14:26] VITALS: RESP 20; O2SAT 100
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
[2018-06-09 16:57] LABS: HCG,QUALITATIVE URINE NEGATIVE (NEGATIVE)
[2018-06-09 17:01] LABS: SQUAMOUS EPITHIAL 19 /hpf (0-5); URINE BACTERIA OCC (<OCC); URINE BILIRUBIN NEGATIVE (NEGATIVE); URINE BLOOD NEGATIVE (NEGATIVE); URINE CLARITY Hazy (Clear); URINE COLOR Yellow (YELLOW); URINE GLUCOSE (UA) NORMAL (Normal); URINE LEUKOCYTE ESTERASE TRACE Leu/uL (Negative); URINE PROTEIN NEGATIVE (NEGATIVE); URINE UROBILINOGEN NORMAL mg/dL (0.2-1.0)
[2018-06-09] MEDS ORDERED: cefTRIAXone (Rocephin) 250 mg Inj IM STA (17:25)
[2018-06-09] MEDS ORDERED: Emtricitabine-Tenofovir 200 mg-300 mg Tab PO STA (18:32)
[2018-06-09 18:44] VITALS: BP 94/58; PULSE 75; TEMP 98.1
[2018-06-09] MEDS ORDERED: Emtricitabine-Tenofovir 200 mg-300 mg Tab PO NR (18:45)
== END 2018-06-09 19:36 | disposition home or self-care (01) ==
LOC: C.ER 14:06
DX: T74.21XD Adult sexual abuse, confirmed, subsequent encounter (principal)
CPT/HCPCS: 81001; 84703; 87070; 87491; 87591; 96372; 99284; J0696